=== PATIENT | female | born 1985 | race Caucasian/White ===

== ENCOUNTER 2019-10-13 01:23 | Emergency (ER) | payer BC, OTHER ==
[~2019-10-13] VITALS: Ht 175.3 cm; Wt 163.3 kg
[2019-10-13 01:30] VITALS: BP 164/100
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
[2019-10-13] MEDS ORDERED: TDAP [DIPH/PERTUSSIS/TET] 0.5 ML VIAL IM ONE ×2 (01:54→02:00)
== END 2019-10-13 02:31 | disposition home or self-care (01) ==
LOC: ER 01:24
DX: T24.211A Burn of second degree of right thigh, initial encounter (principal); T23.101A Burn of first degree of right hand, unspecified site, initial encounter; T31.0 Burns involving less than 10% of body surface; Z60.2 Problems related to living alone; Z98.890 Other specified postprocedural states; X12.XXXA Contact with other hot fluids, initial encounter; Y93.89 Activity, other specified; Y92.89 Other specified places as the place of occurrence of the external cause; Y99.8 Other external cause status
CPT/HCPCS: 90715